=== PATIENT | female | born 1980 | race African-American/Black ===

== ENCOUNTER 2024-05-26 05:48 | Emergency (ER) | payer OTHER ==
[~2024-05-26] VITALS: Ht 154.9 cm; Wt 68.0 kg
[2024-05-26 05:53] VITALS: BP 142/83; PULSE 93; RESP 20; TEMP 98.7; O2SAT 96
[2024-05-26] MEDS ORDERED: HALOPERIDOL LACTATE 5MG/ML VIAL IM ONE (06:00)
[2024-05-26 07:18] LABS: BASOPHILS % 0.3 % (0.0-2.0); EOSINOPHILS % 1.1 % (0.0-5.0); HEMATOCRIT. 39.8 % (36.0-48.0); HEMOGLOBIN. 12.7 g/dL (12.0-16.0); LYMPHOCYTES % 7.8 % (20.0-50.0); MEAN CORPUSCULAR HEMOGLOBIN 26.9 pg (28.0-32.0); MEAN CORPUSCULAR HGB CONC 32.1 g/dL (31.0-37.0); MEAN CORPUSCULAR VOLUME 83.8 fL (81.0-99.0); MONOCYTES % 4.2 % (2.0-8.0); NEUTROPHILS % 86.6 % (40.0-76.0); RED BLOOD CELL COUNT 4.74 mill/uL (4.2-5.4); RED CELL DISTRIBUTION WIDTH 13.9 % (11.6-14.6)
[2024-05-26 07:29] LABS: PROTHROMBIN TIME 10.7 sec (9.6-11.0)
[2024-05-26 07:30] LABS: CARBON DIOXIDE 22 mEq/L (21-32); CHLORIDE 107 mEq/L (98-107); POTASSIUM 3.6 mEq/L (3.5-5.1); SODIUM 140 mEq/L (136-145)
[2024-05-26 07:35] LABS: CREATININE 0.9 mg/dL (0.6-1.0)
[2024-05-26 07:36] LABS: GLUCOSE 161 mg/dL (70-105); UREA NITROGEN BLOOD 11 mg/dL (9-23)
[2024-05-26 07:38] LABS: ALANINE AMINOTRANSFERASE < 7 IU/L (10-49); ALBUMIN 4.2 g/dL (3.2-4.8); ASPARTATE AMINOTRANSFERASE 16 IU/L (<34); BILIRUBIN TOTAL 0.4 mg/dL (0.1-1.0); PROTEIN TOTAL 7.1 g/dL (6.0-8.3)
[2024-05-26 07:39] LABS: BILIRUBIN DIRECT < 0.1 mg/dL (<=3.0)
[2024-05-26 07:41] LABS: HCG SCREEN NEGATIVE
[2024-05-26 07:51] LABS: DIFFERENTIAL COMMENT 1
== END 2024-05-26 10:48 | disposition home or self-care (01) ==
LOC: ER 05:48
DX: F12.188 Cannabis abuse with other cannabis-induced disorder (principal)
CPT/HCPCS: 36415; 80048; 80076; 84703; 85025; 99283